=== PATIENT | female | born 1935 | race Caucasian/White ===

== ENCOUNTER 2016-10-21 08:48 | Day surgery (SDC) | payer MEDICARE, OTHER ==
[2016-10-13 10:24] VITALS: BMI 26.7
--- NOTE | 2016-10-21 10:07 | CP.SDSHP ---
Same Day Surgery H & P - History Proposed Procedure: Angiogram with left SFA atherectomy, FLAME BURNER, stent. Pre-Op Diagnosis: Claudication, PVD - Previous Medical/Surgical History Cardiac: Hypertension Endocrine/Metabolic: Diabetes - Allergies Allergies: Allergies Iodinated Contrast Media - Oral and Allergy (Intermediate, Verified 10/13/16 10: 45) RASH - Current Medications Current Medications: Metformin 1000 mg BID Januvia 10 mg QD Lovastatin 20 m gQD Captopril 100 mg TID - Physical Exam General Appearance: Well nourished, no distress. Mental Status: Alert & Oriented x3 Neuro: WNL Heart: WNL Lungs: WNL GI: WNL - {Optional Preform as Required} Abdomen: WNL - Impression Impression: Pt with PVD and 2 block claudication left lower extremity. Pt had CTA showing 50% proximal left SFA disease. Also, she occlusion of peroneal artery. Plan angiogram with possible atherectomy, FLAME BURNER, or stenting of left SFA. Informed consent obtained and risk of hematoma, emboli requiring embolectomy or surgery explained, vessel dissection requiring stent, limb loss were explained. Pt. Evaluated Today:Candidate for Anesthesia & Procedure: Yes (ASA 2 Malampati 3) - Date & Time Date: 10/21/16 Time: 10:00 Short Stay Discharge - Short Stay Discharge Admitting Diagnosis/Reason for Visit: CLAUDICATION Disposition: HOME/ ROUTINE
--- NOTE | 2016-10-21 10:14 | CP.PCM.CON ---
History of Present Illness - History of Present Illness History of Present Illness: Mrs. Paul was seen in September 29, 2016 for claudication. She was referred by Dr. Shi. Mrs. Paul has 2 block claudication. She describes heaviness and tightness in her left calf when ambulating. After resting for several minutes, Pt can continue walking. She is a diabetic and also suffers from hypertension, hyperlipidemia. She does not smoke. No history of [place]. She denies any leg swelling. Pt walks daily. She admits that this has become increasingly difficult. Arterial duplex performed on 08/28/16 and CTA performed on 08/29/2016 showed left SFA stenosis. Past Patient History - Past Medical History & Family History Past Medical History?: Yes - Past Social History Smoking Status: Never Smoked - CARDIAC Hx Cardiac Disorders: Yes Hx Hypercholesterolemia: Yes Hx Hypertension: Yes Hx Peripheral Vascular Disease: Yes - PULMONARY Hx Respiratory Disorders: No - NEUROLOGICAL Hx Neurological Disorder: No - HEENT Hx HEENT Problems: Yes Hx Cataracts: Yes (BILAT.) - RENAL Hx Chronic Kidney Disease: No - ENDOCRINE/METABOLIC Hx Endocrine Disorders: Yes Hx Diabetes Mellitus Type 2: Yes - HEMATOLOGICAL/ONCOLOGICAL Hx Blood Disorders: No - INTEGUMENTARY Hx Dermatological Problems: No - MUSCULOSKELETAL/RHEUMATOLOGICAL Hx Musculoskeletal Disorders: Yes Other/Comment: "STIFFNESS OF INDEX FINGERS" - GASTROINTESTINAL Hx Gastrointestinal Disorders: Yes - GENITOURINARY/GYNECOLOGICAL Hx Genitourinary Disorders: No - PSYCHIATRIC Hx Psychophysiologic Disorder: No - SURGICAL HISTORY Hx Surgeries: Yes Hx Cataract Extraction: Yes (BILAT.) - ANESTHESIA Hx Anesthesia: Yes Hx Anesthesia Reactions: No Hx Malignant Hyperthermia: No Has any member of the family had a problem w/ anesthesia?: No Meds Allergies/Adverse Reactions: Allergies Allergy/AdvReac Type Severity Reaction Status Date / Time Iodinated Contrast Media - Allergy Intermediate RASH Verified 10/13/16 10:45 Oral and Results - Labs Labs: Laboratory Results - last 24 hr 10/21/16 10:01 POC Glucose (mg/dL) 265 H Assessment & Plan (1) PVD (peripheral vascular disease) with claudication Assessment and Plan: Plan angiogram and left SFA atherectomy and IT SPECIALIST/stent. Status: Acute
[2016-10-21] MEDS ORDERED: Iodixanol 320 MG/ML 100 ML BOTTLE IV ONE (10:16)
[2016-10-21] MEDS ORDERED: Iodixanol 320 MG/ML 200 ML BOTTLE IV ONE (10:16)
[2016-10-21] MEDS ORDERED: Lidocaine 2% Inj (20ml) ONE ×2 (10:21→10:31)
[2016-10-21] MEDS ORDERED: Propofol 10 mg/ml Inj (20 ML) ONE (10:25)
[2016-10-21] MEDS ORDERED: Midazolam 2 MG/2 ML VIAL ONE (10:25)
--- NOTE | 2016-10-21 11:03 | PCM.SURG1 ---
Surgeon's Initial Post Op Note - Surgeon's Notes Surgeon: Vinod Ovalle MD Lithograph Press Operator Tinware: NONE Type of Anesthesia: IV Sedation Pre-Operative Diagnosis: PVD, claudication Operative Findings: Moderate proximal SFA stenosis, 30%, with eccentric plaque. 30 % distal SFA stenosis. Run off shows patent ENVIRONMENTAL COMPLIANCE SPECIALIST, Peroneal artery has multifocal areas of severe stenosis. HILDA is also stenotic in mid segment. Post-Operative Diagnosis: PVD, Operation Performed: Left lower extremity angiogram, ENVIRONMENTAL COMPLIANCE SPECIALIST SFA with a 5 mm balloon. Specimen/Specimens Removed: NONE Estimated Blood Loss: EBL {In ML}: 5 Blood Products Given: N/A Drains Used: No Drains Post-Op Condition: Good Date of Surgery/Procedure: 10/21/16 Time of Surgery/Procedure: 11:00
--- NOTE | 2016-10-21 14:26 | SPECPROC ---
PROCEDURE: Date of procedure: 10/21/2016 Procedure: 1. Left lower extremity angiogram, 2. Balloon angioplasty left SFA Medications: 1 percent Lidocaine, IV sedation administered by the anesthesiologist along with physiologic monitoring. 4000 heparain IVP intra procedural. HISTORY: Claudication, left SFA moderate stenosis at the origin also the distal SFA. TECHNIQUE: Following informed consent to procedure time-out, the patient was placed supine on the interventional table and right groin prepped and draped in the usual sterile fashion. The right common femoral artery was accessed with micropuncture technique and a guidewire was advanced under fluoroscopic guidance into the abdominal aorta. This was exchanged over a guidewire for a 5 Mexican vascular sheath. A flush catheter was advanced through the sheath in the lower abdominal aorta and a pelvic angiogram was performed. The flush catheter was then advanced into the contralateral left external iliac artery and a left lower extremity angiogram performed. Findings: Left lower extremity angiogram showed moderate 30% stenosis of the proximal left SFA with calcified eccentric plaque and a moderate, 40%, stenosis of the distal SFA. The common femoral artery and profunda femoral artery normal. Popliteal artery is normal. The posterior tibial artery is patent. The peroneal artery is segmentally occluded throughout. The anterior tibial artery is patent. . The patient was given 4000 units of heparin intravascularly. A 6 Mexican vascular sheath was advanced over a wire and positioned within the contralateral external iliac artery. A 5 Mexican angled glide catheter was advanced through the sheath and a guidewire was successfully advanced across the stenotic SFA segments. Percutaneous balloon angioplasty was performed across the stenotic sub official femoral artery segments. 5 millimeters x 80 mm percutaneous balloon angioplasty was performed across the distal SFA stenosis follow-up of the proximal SFA stenosis. Following prolonged balloon angioplasty repeat left lower extremity angiogram showed improved angiographic appearance of the stenotic SFA segments. The distal run-off remained unchanged. The vascular sheath and guidewire were removed and hemostasis achieved with a 6 Mexican Angio-Seal followed by manual compression. IMPRESSION: 1. Moderate stenosis of the proximal left SFA and moderate of the distal SFA successfully treated with percutaneous balloon angioplasty using a 5 millimeter x 80 millimeter balloon 2. Left runoff shows a patent posterior tibial artery and anterior tibial artery. The peroneal artery is occluded in multiple segments.
[2016-10-21 15:38] VITALS: RESP 16; TEMP 97.3; O2SAT 99
[2016-10-21 15:41] VITALS: BP 146/73; PULSE 73
== END 2016-10-21 15:00 | disposition home or self-care (01) ==
LOC: C.SPRAD 08:48
PROVIDERS: ATTEND Radiology Vascular & Interventional Radiology
DX: E11.51 Type 2 diabetes mellitus with diabetic peripheral angiopathy without gangrene (principal); I70.212 Atherosclerosis of native arteries of extremities with intermittent claudication, left leg; Z79.4 Long term (current) use of insulin
CPT/HCPCS: 36247; 37224; 75710; 82948; 94770; C1725; C1760; C1769; C1887; C1894; J1644; J2250; J2704; Q9966; Q9967